=== PATIENT | female | born 1945 | race Hispanic/Latino ===

== ENCOUNTER 2018-09-16 12:14 | Emergency (ER) | payer MEDICARE, BC ==
[2018-09-16 12:17] VITALS: BMI 31.8
--- NOTE | 2018-09-16 12:52 | ED PDOC ---
Arrival/HPI <Jeronimo Hoyos - Last Filed: 09/16/18 17:43> - General Historian: Patient - History of Present Illness Narrative History of Present Illness (Text): 09/16/18 12:53 Patient is a 73 year old female with a past medical history including afib (on coumadin), asthma and "stomach problems" was sent in to the emergency room from Dr. Diaz's office with a complaint of left sided flank pain. The pain started 3 days ago and is sharp in nature. The pain has been getting progressively worse causing her to not be able to sleep for the past two nights. The pain is located on the lateral aspect of the LUQ of her abdomen. The pain does not radiate and stays anteriorly. She has experienced this pain once before 5 years ago. She states she was worked up by a GI doctor and they told her she had "ulcers and 7 polyps" in her stomach. Patient went to see Dr. Diaz on Thursday and again today. He told her to come to the emergency room to be evaluated as her pain has not improved. She is also reporting increased abdominal distension and worsening shortness of breath over the past 3 days. She reports episodes of chills but has not taken her temperature. Denies nausea, vomiting, diarrhea, constipation, chest pain, headaches, numbness or tingling. PMD: Emily Cardio: Sal Time/Duration: < week (3 days ago) Symptom Onset: Gradual Symptom Course: Worsening Quality: Stabbing <James Renae - Last Filed: 09/16/18 20:58> - General Chief Complaint: Abdominal Pain Time Seen by Provider: 09/16/18 12:15 Past Medical History - Provider Review Nursing Documentation Reviewed: Yes - Tetanus Immunization Tetanus Immunization: Unknown - Cardiac Hx Hypertension: Yes Hx Pacemaker: No - Pulmonary Hx Respiratory Disorders: No - Neurological Hx Paralysis: No - HEENT Hx HEENT Disorder: No - Renal Hx Renal Disorder: No - Endocrine/Metabolic Hx Endocrine Disorders: Yes Hx Diabetes Mellitus Type 2: Yes - Hematological/Oncological Hx Blood Transfusions: No Hx Blood Transfusion Reaction: No - Integumentary Hx Dermatological Disorder: Yes Hx Psoriasis: Yes - Musculoskeletal/Rheumatological Hx Musculoskeletal Disorders: No - Gastrointestinal Hx Gastrointestinal Disorders: No Other/Comment: polyps - Genitourinary/Gynecological Hx Genitourinary Disorders: No - Psychiatric Hx Emotional Abuse: No Hx Physical Abuse: No Hx Substance Use: No - Surgical History Hx Coronary Stent: Yes (x1) - Anesthesia Hx Anesthesia Reactions: No Hx Malignant Hyperthermia: No - Suicidal Assessment Feels Threatened In Home Enviroment: No <James Renae - Last Filed: 09/16/18 20:58> Family/Social History - Physician Review Nursing Documentation Reviewed: Yes Family/Social History: Unknown Family HX Smoking Status: Never Smoked Hx Alcohol Use: No Hx Substance Use: No Hx Substance Use Treatment: No <James Renae - Last Filed: 09/16/18 20:58> Allergies/Home Meds <Jeronimo Hoyos - Last Filed: 09/16/18 17:43> <James Renae - Last Filed: 09/16/18 20:58> Allergies/Adverse Reactions: Allergies No Known Allergies Allergy (Verified 09/16/18 12:17) Home Medications: Home Meds Medication Instructions Recorded Confirmed Furosemide [Lasix] 40 mg PO DAILY 05/09/16 09/16/18 Glimepiride 4 mg PO BID 05/09/16 09/16/18 Hydralazine HCl 50 mg PO BID 05/09/16 09/16/18 Simvastatin 40 mg PO QPM 05/09/16 09/16/18 Sildenafil [Revatio] 1 mg PO BID 05/12/16 09/16/18 Warfarin [Coumadin] 5 mg PO DAILY 05/12/16 09/16/18 Albuterol Sulfate [Ventolin Hfa] 0 mg IH DAILY 09/16/18 09/16/18 Fluticasone Propionate [Flovent 0 gm IH DAILY 09/16/18 09/16/18 Hfa] Pantoprazole [Protonix] 40 mg PO DAILY 09/16/18 09/16/18 metFORMIN [glucOPHAGE] 850 mg PO DAILY 09/16/18 09/16/18 Review of Systems - Physician Review All systems were reviewed & negative as marked: Yes - Review of Systems Constitutional: Fatigue, Weight Change (increased). absent: Fevers (Chills only) Eyes: Normal. absent: Vision Changes ENT: Normal. absent: Sore Throat, Rhinorrhea Respiratory: SOB. absent: Cough, Sputum, Wheezing Cardiovascular: Edema, RAMOS. absent: Chest Pain, Palpitations Gastrointestinal: Abdominal Pain, Other (abdominal distension). absent: Stool Changes, Constipation, Diarrhea, Nausea, Vomiting Genitourinary Female: Normal. absent: Dysuria, Frequency, Hematuria Musculoskeletal: Normal Skin: Normal Neurological: Normal. absent: Headache, Focal Weakness Endocrine: Normal. absent: Diaphoresis Hemo/Lymphatic: Normal. absent: Adenopathy Psychiatric: Normal. absent: Anxiety <James Renae - Last Filed: 09/16/18 20:58> Physical Exam Vital Signs Temp Pulse Resp BP Pulse Ox 09/16/18 12:17 97.6 F 82 21 179/80 H 96 <JacobyfranbrunaJeronimo - Last Filed: 09/16/18 17:43> Vital Signs Reviewed: Yes Vital Signs Temp Pulse Resp BP Pulse Ox 09/16/18 12:17 97.6 F 82 21 179/80 H 96 Temperature: Afebrile Blood Pressure: Hypertensive Pulse: Regular Respiratory Rate: Normal Appearance: Positive for: Non-Toxic, Uncomfortable Pain Distress: Mild Mental Status: Positive for: Alert and Oriented X 3 - Systems Exam Head: Present: Atraumatic, Normocephalic Extroacular Muscles: Present: EOMI Conjunctiva: Present: Normal Mouth: Present: Moist Mucous Membranes Nose (External): Present: Atraumatic Nose (Internal): Present: No Active Bleeding, Moist Neck: Present: Normal Range of Motion. No: JVD, Lymphadenopathy Respiratory/Chest: Present: Clear to Auscultation, Good Air Exchange. No: Respiratory Distress, Accessory Muscle Use Cardiovascular: Present: Regular Rate and Rhythm, Normal S1, S2. No: Murmurs Abdomen: Present: Tenderness (LUQ). No: Distention, Peritoneal Signs, Rebound Back: Present: Normal Inspection. No: CVA Tenderness, Midline Tenderness, Paraspinal Tenderness Upper Extremity: Present: Normal Inspection, NORMAL PULSES. No: Cyanosis, Edema Lower Extremity: Present: Normal Inspection, Edema (2+ pitting b/l), NORMAL PULSES. No: CALF TENDERNESS Neurological: Present: GCS=15, Speech Normal, Motor Func Grossly Intact Skin: Present: Warm, Dry, Normal Color. No: Rashes Psychiatric: Present: Alert, Oriented x 3, Normal Insight, Normal Concentration <James Renae - Last Filed: 09/16/18 20:58> Medical Decision Making ED Course and Treatment: 09/16/18 13:29 73 year old Female who presents to the Emergency Department with complaints of left sided flank pain. In agreement with resident note, which includes further HPI details. Patient was seen and evaluated with resident, came up with plan and treatment together. 09/16/18 17:43 pt seen with resident with luq pain ?gstritis vs pud. ct labs neg. bnp elevated, sating well on ra. speaking full sentences. cxr cardiomegaly. lasix dosed. discussed with pmd. pt initialy voiced discomfort with dc, however later prefers outpt managment, declines admission. instructed strict return precautions. outpt fu. - RAD Interpretation Radiology Orders: 09/16/18 12:53 CHEST PORTABLE [RAD] Stat - Medication Orders Current Medication Orders: Discontinued Medications Ondansetron HCl (Zofran Inj) 4 mg IVP STAT STA Stop: 09/16/18 12:55 Pantoprazole Sodium (Protonix Inj) 40 mg IVP STAT STA Stop: 09/16/18 12:54 <Jeronimo Hoyos - Last Filed: 09/16/18 17:43> ED Course and Treatment: 09/16/18 13:12 Patient is a 73 year old female with a past medical history including afib (on coumadin), asthma and "stomach problems" was sent in to the emergency room from Dr. Diaz's office with a complaint of left sided flank pain. Patient appears mildly short of breath, worse with ambulation Call placed to Dr. Diaz for history of present illness Protonix and Zofran given Labs, CXR, EKG 09/16/18 13:12 Patient's pain is poorly controlled. Morphine 4mg IVP ordered. Will re-assess 09/16/18 15:04 CT scan is unremarkable. Discussed results with patient. Patient's pain is more under control at this time. Call placed to Dr. Diaz to discuss results. 09/16/18 15:14 Discussed results of labs and CT scan with Dr. Diaz. Dr. Diaz states that patient's secondary complaint of dyspnea on exertion is well known and is secondary to the patient's history of pulmonary hypertension. Patient is currently resting comfortably in best, saturating at 96% on RA. Dr. Diaz requests patient to follow up in his office as an outpatient. She states her abdominal pain is getting worse and is requesting further observation/admission. Will observe and re-asses 09/16/18 17:00 Patient is sitting up on the side of the bed eating a [place] sandwich. She is conversing with her at bedside. Patient states she would like to be discharged home. Multiple attempts were made to get in contact with Dr. Diaz but no call back was received. Patient will be discharged home with instructions to increase her Lasix dose and follow up with Dr. Diaz. Re-evaluation Time: 15:14 Reassessment Condition: Improving,but remains with symptoms - Lab Interpretations I have reviewed the lab results: Yes - RAD Interpretation Narrative RAD Interpretations (Text): 09/16/18 14:31 CXR - no active disease 09/16/18 15:03 PROCEDURE: CT abdomen and pelvis with intravenous contrast HISTORY: Left-sided abdominal pain. COMPARISON: None. TECHNIQUE: Intravenous contrast dose: 100 cc Omnipaque 350. Radiation dose: Total exam DLP = 844.79 mGy-cm. This CT exam was performed using one or more of the following dose reduction techniques: Automated exposure control, adjustment of the mA and/or kV according to patient size, and/or use of iterative reconstruction technique. FINDINGS: LOWER THORAX: Unremarkable. LIVER: Hepatomegaly, hepatic steatosis. Multiple small less than 1 cm contrast- enhancing masses likely flash hemangioma. Hypervascular metastatic disease can also assume this appearance. This would include gastrointestinal primaries and melanoma. Prior CT scan from 01/28/2015 was an unenhanced study. The mass is were not identified on the previous examination. GALLBLADDER AND BILE DUCTS: Unremarkable. PANCREAS: Unremarkable. No gross lesion or ductal dilatation. SPLEEN: Unremarkable. ADRENALS: Unremarkable. No mass. KIDNEYS AND URETERS: Unremarkable. No hydronephrosis. No solid mass. VASCULATURE: Unremarkable. No aortic aneurysm. Minor atherosclerotic calcification/mural plaque present. BOWEL: Diverticulosis without an acute inflammatory component or other associated pathologic process. Constipation without fecal impaction or obstruction. APPENDIX: Normal appendix. PERITONEUM: Low volume intra-abdominal and pelvic ascites. No free air or drainable collection noted. No free air. LYMPH NODES: Unremarkable. No enlarged lymph nodes. BLADDER: Unremarkable. REPRODUCTIVE: Unremarkable. BONES: No acute fracture. Osteopenia, compression deformities or stable findings, no interval change compared to 01/28/2015. OTHER FINDINGS: None. IMPRESSION: No acute findings related to/accounting for the clinical presentation. Additional benign and/or incidental findings described above. Elevator Service Technician: Radiologist - EKG Interpretation EKG Interpretation (Text): 09/16/18 13:16 Afib @80bpm, normal axis, non specific ST wave changes, no acute ST elevations or depressions - EKG similar to prior EKG on 01/28/2015 Interpreted by ED Physician: Yes Type: 12 lead EKG Comparison: Similar to previous EKG <James Renae - Last Filed: 09/16/18 20:58> - PA / DCS ENGINEER / Resident Statement / has reviewed & agrees with the documentation as recorded. MD/DO has examined the patient and agrees with the treatment plan. - Scribe Statement The provider has reviewed the documentation as recorded by the Scribe Nadine Garcia All medical record entries made by the Scribe were at my direction and personally dictated by me. I have reviewed the chart and agree that the record accurately reflects my personal performance of the history, physical exam, medical decision making, and the department course for this patient. I have also personally directed, reviewed, and agree with the discharge instructions and disposition. <Jeronimo Hoyos - Last Filed: 09/16/18 17:43> Disposition/Present on Arrival <Jeronimo Hoyos - Last Filed: 09/16/18 17:43> - Present on Arrival Any Indicators Present on Arrival: No History of DVT/PE: No History of Uncontrolled Diabetes: No Urinary Catheter: No History of Decub. Ulcer: No History Surgical Site Infection Following: None - Disposition Have Diagnosis and Disposition been Completed?: Yes Disposition Time: 17:10 Patient Plan: Discharge <James Renae - Last Filed: 09/16/18 20:58> - Disposition Diagnosis: Abdominal pain Disposition: HOME/ ROUTINE Patient Problems: Current Active Problems Problem Status Onset Abdominal pain Acute Condition: GOOD Discharge Instructions (ExitCare): Acute Abdomen (Belly Pain), Adult (DC) Additional Instructions: NADINE ANDREW, thank you for letting us take care of you today. Your provider was Jeronimo Hoyos DO and you were treated for abdominal pain. The emergency medical care you received today was directed at your acute symptoms. If you were prescribed any medication, please fill it and take as directed. It may take several days for your symptoms to resolve. Return to the Emergency Department if your symptoms worsen, do not improve, or if you have any other problems. Please contact your doctor or call one of the physicians/clinics you have been referred to that are listed on the Patient Visit Information form that is included in your discharge packet. Bring any paperwork you were given at discharge with you along with any medications you are taking to your follow up visit. Our treatment cannot replace ongoing medical care by a primary care provider outside of the emergency department. Thank you for allowing the [facility] team to be part of your care today. If you had an X-Ray or CT scan: A Radiologist will review the ED reading if any change in treatment is needed we will contact you. If you had a blood, urine, or wound culture: It will take several days for the results, if any change in treatment is needed we will contact you. If you had an STI test: It will take 48 hours for the results. Please call after 1 week if you have not heard back. Prescriptions: Sucralfate [Carafate] 1 gm PO QID #20 tablet Forms: [employer] ([place])
--- NOTE | 2018-09-16 13:19 | RAD ---
Date of service: 09/16/2018 HISTORY: abd pain/left sided pain COMPARISON: No prior. FINDINGS: LUNGS: No active pulmonary disease. PLEURA: No significant pleural effusion identified, no pneumothorax apparent. CARDIOVASCULAR: No atherosclerotic calcification present Moderate cardiomegaly OSSEOUS STRUCTURES: No significant abnormalities. VISUALIZED UPPER ABDOMEN: Normal. OTHER FINDINGS: None. IMPRESSION: No active disease.
[2018-09-16 13:41] LABS: BASO # 0.04 K/mm3 (0.0-2.0); BASO % 0.6 % (0.0-3.0); EOS # 0.1 (0.0-0.7); EOS % 0.9 % (1.5-5.0); GRAN # 5.23 (1.4-6.5); GRAN % 74.4 % (50.0-68.0); HEMOGLOBIN 12.5 g/dL (12.0-16.0); MEAN CELL VOLUME 84.4 fl (80.0-105.0); MEAN CORPUSCULAR HEMOGLOBIN 27.1 pg (25.0-35.0); MEAN CORPUSCULAR HGB CONC 32.1 g/dl (31.0-37.0); MEAN PLATELET VOLUME 10.8 fl (7.0-11.0); MONO # 0.7 (0.1-0.6); MONO % 10.1 % (1.0-6.0); PH,URINE 6.5 (4.7-8.0); RBC 4.62 10^6/uL (3.5-6.1); RED CELL DISTRIBUTION WIDTH 17.8 % (11.5-14.5); URINE BILIRUBIN NEGATIVE (NEGATIVE); URINE BLOOD NEGATIVE (NEGATIVE); URINE COLOR YELLOW (YELLOW); URINE GLUCOSE (UA) NEGATIVE (NEGATIVE); URINE LEUKOCYTE ESTERASE TRACE Leu/uL (NEGATIVE); URINE PROTEIN 30 mg/dL (<30 mg/dL)
[2018-09-16 13:42] LABS: URINE APPEARANCE CLEAR (CLEAR)
[2018-09-16 13:49] LABS: INR 2.88; PARTIAL THROMBOPLASTIN TIME 46.4 Seconds (25.1-36.5); PROTHROMBIN TIME 33.8 SECONDS (9.4-12.5)
[2018-09-16 13:53] LABS: ALB/GLOB RATIO 1.4 (1.1-1.8); ALBUMIN 4.7 g/dL (3.0-4.8); ALT/SGPT 30 U/L (7-56); AST/SGOT 31 U/L (14-36); BLOOD UREA NITROGEN 24 mg/dL (7-21); CALCIUM 10.3 mg/dL (8.4-10.5); GFR NON-AFRICAN AMERICAN > 60; LIPASE 126 U/L (23-300)
[2018-09-16 13:55] LABS: URINE BACTERIA TRACE (NEG); URINE EPITHELIAL CELLS 0 - 2 /hpf (0-5); URINE RBC 0 - 2 /hpf (0-2); URINE WBC 0 - 2 /hpf (0-6)
[2018-09-16] MEDS ORDERED: Morphine 4 mg/ml ISec IVP STA (13:56)
[2018-09-16] MEDS ORDERED: Iohexol 350 MG/100 ML VIAL ONE (13:59)
[2018-09-16 14:05] LABS: B-TYPE NATRIURETIC PEPTIDE 3550 pg/mL (0-450); TROPONIN I < 0.01 ng/mL
--- NOTE | 2018-09-16 15:03 | CT ---
Date of service: 09/16/2018 PROCEDURE: CT abdomen and pelvis with intravenous contrast HISTORY: Left-sided abdominal pain. COMPARISON: None. TECHNIQUE: Intravenous contrast dose: 100 cc Omnipaque 350. Radiation dose: Total exam DLP = 844.79 mGy-cm. This CT exam was performed using one or more of the following dose reduction techniques: Automated exposure control, adjustment of the mA and/or kV according to patient size, and/or use of iterative reconstruction technique. FINDINGS: LOWER THORAX: Unremarkable. LIVER: Hepatomegaly, hepatic steatosis. Multiple small less than 1 cm contrast-enhancing masses likely flash hemangioma. Hypervascular metastatic disease can also assume this appearance. This would include gastrointestinal primaries and melanoma. Prior CT scan from 01/28/2015 was an unenhanced study. The mass is were not identified on the previous examination. GALLBLADDER AND BILE DUCTS: Unremarkable. PANCREAS: Unremarkable. No gross lesion or ductal dilatation. SPLEEN: Unremarkable. ADRENALS: Unremarkable. No mass. KIDNEYS AND URETERS: Unremarkable. No hydronephrosis. No solid mass. VASCULATURE: Unremarkable. No aortic aneurysm. Minor atherosclerotic calcification/mural plaque present. BOWEL: Diverticulosis without an acute inflammatory component or other associated pathologic process. Constipation without fecal impaction or obstruction. APPENDIX: Normal appendix. PERITONEUM: Low volume intra-abdominal and pelvic ascites. No free air or drainable collection noted. No free air. LYMPH NODES: Unremarkable. No enlarged lymph nodes. BLADDER: Unremarkable. REPRODUCTIVE: Unremarkable. BONES: No acute fracture. Osteopenia, compression deformities or stable findings, no interval change compared to 01/28/2015. OTHER FINDINGS: None. IMPRESSION: No acute findings related to/accounting for the clinical presentation. Additional benign and/or incidental findings described above.
--- NOTE | 2018-09-16 16:54 | CARD ---
APPROVED REPORT Date of service: 09/16/2018 EKG Measurement Heart [id number] <Conclusion> Atrial fibrillation Incomplete right bundle branch block ST & T wave abnormality, consider inferior ischemia or digitalis effect Abnormal ECG
[2018-09-16 23:49] VITALS: BP 152/71; PULSE 82; RESP 16; TEMP 97.5; O2SAT 97
== END 2018-09-16 17:45 | disposition home or self-care (01) ==
LOC: ED 12:14
DX: R10.12 Left upper quadrant pain (principal); E11.9 Type 2 diabetes mellitus without complications; I10 Essential (primary) hypertension; I48.91 Unspecified atrial fibrillation; Z79.01 Long term (current) use of anticoagulants
CPT/HCPCS: 71045; 74177; 80053; 81001; 82550; 83615; 83690; 83735; 83880; 84484; 85025; 85610; 85730; 87086; 93005; 96374; 96375; 99284; C9113; J1885; J1940; J2270; J2405; Q9967

== ENCOUNTER 2019-04-21 08:26 | Outpatient (CLI) | payer MEDICARE, BC | END 2019-04-21 08:27 | disposition home or self-care (01) | LOC: RAD 08:26 ==